=== PATIENT | male | born 1990 | race Caucasian/White ===

== ENCOUNTER 2021-08-11 23:24 | Emergency (ER) | payer BC ==
[~2021-08-11] VITALS: Ht 195.6 cm; Wt 95.5 kg
--- NOTE | 2021-08-12 00:10 | NUR ---
PT ROOMED IN BED 14. ASSUMED CARE OF PT.
[2021-08-12 03:13] VITALS: BP 117/69
[2021-08-12] MEDS ORDERED: NALO4SPR BOTHNARES (03:16)
== END 2021-08-12 03:30 | disposition home or self-care (01) ==
LOC: ER 23:26
DX: T40.601A Poisoning by unspecified narcotics, accidental (unintentional), initial encounter (principal); R61 Generalized hyperhidrosis; Y92.89 Other specified places as the place of occurrence of the external cause
CPT/HCPCS: 99285